=== PATIENT | female | born 2000 | race Caucasian/White ===

== ENCOUNTER 2023-08-06 11:40 | Outpatient (CLI) | payer OTHER, SELFPAY ==
--- NOTE | ~2023-08-06 | XR_ITS ---
EXAMINATION: XR mandible min 4V DATE: 08/06/2023 12:15 INDICATION: Pain in left mandible and maxilla. TECHNIQUE: 5 views of the mandible were obtained. COMPARISON: None. FINDINGS: Bone alignment is normal. No fracture. The temporomandibular joints are normal. IMPRESSION: 1. Normal mandible. Reviewed, dictated and finalized at location E. A DIRECTOR IMPRESSION: 1. Normal mandible.
== END 2023-08-06 11:41 ==
LOC: MICIMG 11:42
PROVIDERS: PCP Nurse Practitioner Adult Health; Visit Provider Nurse Practitioner Adult Health
DX: R68.84 Jaw pain (principal)
CPT/HCPCS: 70110

== ENCOUNTER 2024-01-29 10:28 | Emergency (ER) | payer OTHER, MEDICAID, SELFPAY ==
--- NOTE | ~2024-01-29 | CT_ITS ---
Non-contrast Head CT History: CVA Technique: Axial non-contrast imaging of the brain was performed. Dose reduction technique was used on this scan by utilizing automated exposure control and iterative reconstruction technique. The dose -length product (DLP) was 529.67 mGy-cm. Findings: There is no evidence of intracranial hemorrhage, mass lesion, or acute infarct. Brain par enchyma appears normal. The ventricles and subarachnoid spaces are normal in size. The calvarium ap pears normal. The visualized paranasal sinuses and mastoid air cells are clear. Impression: No significant abnormality seen. Case discussed with Dr. Castro at 10:45 AM on 01/29/2024. Reviewed, dictated and finalized at [facility]. Impression: No significant abnormality seen. Case discussed with Dr. Castro at 10:45 AM on 01/29/2024.
--- NOTE | ~2024-01-29 | CT_ITS ---
CT ANGIOGRAM NECK AND HEAD History: CVA. Technique: Serial spiral axial images through the head and neck were obtained during arterial phase I V injection of 100 cc of Omnipaque 350. 3-D postprocessing and MIP images were then reconstructed on the remote workstation. Dose reduction technique was used on this scan by utilizing automated exposur e control and iterative reconstruction technique. The dose-length product (DLP) was 802.54 mGy-cm. CTA neck findings: Bilateral vertebral arteries are probably patent, though somewhat poorly opacifie d. Bilateral common carotid, internal carotid, and external carotid arteries are patent. No large ves [place] occlusion or stenosis seen. No aneurysm seen. The proximal right internal carotid artery demonstr ates 0% stenosis relative to the normal distal artery lumen diameter. The proximal left internal carpenter tid artery demonstrates 0% stenosis relative to the normal distal artery lumen diameter. CTA head findings: Distal vertebral arteries, basilar artery, and posterior cerebral arteries are pat ent. Distal internal carotid arteries, middle cerebral arteries, and anterior cerebral arteries are p atent. No large vessel occlusion or stenosis. No aneurysm seen. Impression: No significant vascular abnormality seen. Reviewed, dictated and finalized at location . Impression: No significant vascular abnormality seen.
--- NOTE | 2024-01-29 10:36 | ECG_ITS ---
Test Date: 2024-01-29 10:56:55 Measurements Intervals [place] Rate: 106 P: 42 CT: 104 QRS: 34 QRSD: 78 T: -2 QT: 331 QTc: 440 Interpretive Statements SINUS TACHYCARDIA WITH SHORT CT INTERVAL OTHERWISE NORMAL ELECTROCARDIOGRAM No previous ECG available for comparison Electronically Signed On 01-29-2024 13:27:30 CDT by Eron Elizalde M.D.
--- NOTE | 2024-01-29 10:37 | ED.GENADULT ---
HPI - General Adult General Chief complaint: Neuro Symptoms/Deficit Stated complaint: 26 weeks -vision changes Time Seen by Provider: 01/29/24 10:34 History of Present Illness HPI narrative: 23-year-old female presented to the emergency department for evaluation for some right arm numbness. Patient states that she was having breakfast when the symptoms started approximately 9:00 a.m.. Patient states symptoms began to improve around 10:00 a.m.. Patient present to the emergency department at approximately 10:30 a.m.. At time of evaluation patient states she is being getting to feel improved. Patient was evaluated at the stroke stop and had a normal neuro exam. Related Data Home Medications Medication Instructions Recorded Confirmed docosahexaenoic acid 200 mg mg PO 09/17/23 01/06/24 capsule ( DHA) Allergies Allergy/AdvReac Type Severity Reaction Status Date / Time latex Allergy Intermediate RASH Verified 01/29/24 10:28 Review of Systems Review of Systems: All systems reviewed & are unremarkable except as noted in HPI and below PMFSH Past Medical History Medical History Mandible pain Purulent drainage of both ears through ear tube Surgical History Surgical History History of foot surgery wart removed Family History Family History Father Hypertension Grandparent Hypertension Family history of lung cancer Family history of coronary artery disease Family history of malignant neoplasm of kidney Diabetes mellitus ALS (amyotrophic lateral sclerosis) maternal grandmother Mother No problems noted. Sibling No problems noted. Sibling Substance abuse Social History Social History Smoking status: Never smoker Second hand tobacco smoke exposure: No Alcohol intake: never Substance use: never Substance use type: does not use Do You Feel Safe in your Home?: Yes Lack of Transportation: No Lack of Food: Never True Current Housing: I Have Housing Concerned About Future Housing: No Difficulty Paying Gas/Electric Bills: No Difficulty Paying for Meds: No Currently Unemployed: No Education: High School Diploma/GED Difficulty w/ Childcare or Family Care: No Living arrangements: with family Additional living arrangements comments: boyfriend Occupation/Education: occupation 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 HEAD: normocephalic, atraumatic. EYES: PERRLA/EOMI, conjunctivae clear. NOSE: Normal no drainage EARS:TMS clear with good light reflex. THROAT: Pharynx clear, no exudate. NECK: Supple. No adenopathy, no masses. RESPIRATORY: Airway patent, respirations nonlabored. Clear to auscultation bilaterally, no rales, rhonchi, wheezing. CARDIOVASCULAR: Regular rate and rhythm without murmurs rubs or gallops. ABDOMINAL: Soft, nontender, nondistended, normal bowel sounds MUSCULOSKELETAL: Moves all extremities. Strength/ROM intact, No edema, No calf tenderness. NEURO: Alert. Cranial nerves II through XII intact. SKIN: Warm, dry. Normal Color Course Vital Signs Vital signs: Vital Signs Temperature 98.7 F 01/29/24 10:40 Pulse Rate 104 H 01/29/24 10:40 Respiratory Rate 18 01/29/24 10:40 Blood Pressure 131/72 01/29/24 10:40 Pulse Oximetry 100 01/29/24 10:40 Oxygen Delivery Room Air 01/29/24 10:40 Temperature 98.3 F 01/29/24 12:54 Pulse Rate 106 H 01/29/24 12:54 Respiratory Rate 17 01/29/24 12:54 Blood Pressure 119/72 0
[2024-01-29 10:40] VITALS: BP 131/72; PULSE 104; RESP 18; TEMP 37.1; O2SAT 100
[2024-01-29 10:42] LABS: Estimated Glomerular Filt Rate > 60
[2024-01-29 10:43] LABS: Basophils Percent Auto 0.4 % (0.2-1.2); Eosinophils Absolute Auto 0.1 K/mm3 (0-0.3); Eosinophils Percent Auto 1.3 % (0-4.4); Hematocrit 32.3 % (37.0-47.0); Hemoglobin 10.3 g/dL (12.0-15.0); Immature Granulocyte Absolute 0.05 K/mm3 (0.00-0.031); Immature Granulocyte Percent A 0.5 % (0-0.5); Lymphocytes Absolute Auto 2.36 K/mm3 (0.9-3.2); Lymphocytes Percent Auto 24.8 % (18.3-44.2); Mean Corpuscular HGB Conc 31.9 g/dl (32-36); Mean Corpuscular Hemoglobin 28.1 pg (26-34); Mean Corpuscular Volume 88.3 fl (80-100); Mean Platelet Volume 11.7 fl (7.4-10.4); Monocytes Absolute Auto 0.5 K/mm3 (0.1-0.6); Monocytes Percent Auto 5.7 % (2.6-8.5); Neutrophils Absolute Auto 6.4 K/mm3 (1.3-6.7); Neutrophils Percent Auto 67.3 % (45.5-73.1); Platelet Count Result 244 k/mm3 (150-375); Red Blood Count 3.66 M/mm3 (4.2-5.4); White Blood Count 9.5 K/mm3 (4.5-10.0)
[2024-01-29 10:53] LABS: INR 0.9; Prothrombin Time 12.7 Seconds (11.1-14.7)
[2024-01-29 10:54] VITALS: BP 131/72; PULSE 104; RESP 23; O2SAT 100
[2024-01-29 10:54] LABS: Partial Thromboplastin Time 25.9 Seconds (22.3-36.8)
[2024-01-29 11:01] VITALS: BP 119/72; PULSE 92; RESP 15; O2SAT 99
[2024-01-29 11:10] LABS: Alanine Aminotransferase 13 U/L (6-35); Albumin Level 3.8 g/dL (3.5-5.1); Alkaline Phosphatase 96 U/L (38-126); Anion Gap 8 mmol/L (4-12); Aspartate Amino Transferase 21 U/L (14-36); Bilirubin,Total 0.2 mg/dL (0.2-1.3); Blood Urea Nitrogen 10 mg/dL (7-17); Calcium 9.8 mg/dL (8.4-10.2); Carbon Dioxide 26 mmol/L (22-30); Chloride 102 mmol/L (98-107); Estimated CRCL calculation 134 ml/min; Estimated Glomerular Filt Rate > 60; Glucose 107 mg/dL (65-110); Potassium 3.9 mmol/L (3.4-5.0); Sodium 136 mmol/L (137-145)
[2024-01-29 11:42] VITALS: BP 119/72; PULSE 95; RESP 14; TEMP 36.8; O2SAT 99
[2024-01-29 11:49] LABS: Influenza A QL RT-PCR Negative (Negative); Influenza B QL RT-PCR Negative (Negative); RSV RNA, RT-PCR Negative (Negative); SARS-CoV-2 RNA PCR Negative (Negative)
[2024-01-29 12:30] VITALS: BP 119/78; PULSE 107; RESP 15; TEMP 36.6; O2SAT 99
[2024-01-29 12:54] VITALS: BP 119/72; PULSE 106; RESP 17; TEMP 36.8; O2SAT 100
== END 2024-01-29 12:55 | disposition home or self-care (01) ==
PROVIDERS: Emergency Provider Emergency Medicine; PCP Family Medicine
DX: O99.891 Other specified diseases and conditions complicating pregnancy (principal); R20.2 Paresthesia of skin; R00.0 Tachycardia, unspecified; Z3A.26 26 weeks gestation of pregnancy
CPT/HCPCS: 36415; 70450; 70496; 70498; 80053; 85025; 85610; 85730; 87637; 93005; 99284; Q9967

== ENCOUNTER 2024-04-17 18:34 | Observation (INO) | payer OTHER, MEDICAID, SELFPAY ==
[2024-04-17] VITALS (9 sets, daily range): BP systolic 129–148; BP diastolic 63–86; PULSE 98–118; TEMP 37.2–37.6; BMI 31.8
--- NOTE | ~2024-04-17 | US_ITS ---
EXAMINATION: US OB limited w BPP DATE: 04/17/2024 21:58 INDICATION: decelerations in heart rate . TECHNIQUE: Real-time ultrasound of the pelvis was performed. COMPARISON: None. FINDINGS: There is a single living fetus in vertex presentation, longitudinal lie. The placenta is fundal/mate rnal right. heart rate is 148 bpm. Deepest vertical amniotic fluid pocket measures 2.7 cm. Biophysical profile performed by the technologist: breathing (30 sec sustained breathing in 30 minutes): 2 out of 2. movement (3 gross body movements in 30 minutes: 2 out of 2. tone (one episode of rotzhzz-ltawrrjwq-vdhyvhd limb movement): 2 out of 2. Amniotic fluid pocket (2 cm): 2 out of 2. Total score: 8 out of 8. IMPRESSION: Single living fetus in vertex presentation. Biophysical profile 8 out of 8. Reviewed, dictated and finalized at location K. E BELT SANDER
[2024-04-17 19:36] LABS: Add Urine Microscopic? NO; Appearance Urine Clear (Clear); Bilirubin Urine Negative (Negative); Blood Urine Negative (Negative); Color Urine Yellow (Yellow); Glucose Urine UA Negative (Negative); Ketones Urine Negative (Negative); Leukocyte Esterase Ur Negative LEU/UL (Negative); Nitrate Urine Negative (Negative); Protein Urine Negative (Negative); Specific Grav Ur 1.007 (1.001-1.035); Urobilinogen Urine 0.2 mg/dL (<2.0); pH Urine 6.5 (5.0-9.0)
[2024-04-17 21:16] LABS: Basophils Percent Auto 0.2 % (0.2-1.2); Eosinophils Percent Auto 0.2 % (0-4.4); Hematocrit 28.3 % (37.0-47.0); Hemoglobin 9.3 g/dL (12.0-15.0); Immature Granulocyte Absolute 0.08 K/mm3 (0.00-0.031); Immature Granulocyte Percent A 0.6 % (0-0.5); Lymphocytes Absolute Auto 1.19 K/mm3 (0.9-3.2); Lymphocytes Percent Auto 9.1 % (18.3-44.2); Mean Corpuscular HGB Conc 32.9 g/dl (32-36); Mean Corpuscular Hemoglobin 27.3 pg (26-34); Mean Platelet Volume 12.6 fl (7.4-10.4); Monocytes Absolute Auto 0.5 K/mm3 (0.1-0.6); Monocytes Percent Auto 3.4 % (2.6-8.5); Neutrophils Absolute Auto 11.3 K/mm3 (1.3-6.7); Neutrophils Percent Auto 86.5 % (45.5-73.1); Platelet Count Result 202 k/mm3 (150-375); Red Blood Count 3.41 M/mm3 (4.2-5.4); Red Cell Distribution Width 15.9 % (11.5-14.5); White Blood Count 13.1 K/mm3 (4.5-10.0)
--- NOTE | 2024-04-19 14:13 | P.PNOB_ITS ---
OB - Triage/Final Diagnosis Visit Information Date of evaluation: 04/17/24 Reason for evaluation: threatened labor Comments/Additional reasons for admission: I have assessed the risk for this patient, Jules Abdullahi, and determined that she would benefit from observation care. Evaluation Laboratory results: Laboratory Tests 04/17/24 04/17/24 19:27 21:06 WBC 13.1 H RBC 3.41 L Hgb 9.3 L Hct 28.3 L MCV 83.0 MCH 27.3 MCHC 32.9 RDW 15.9 H Plt Count 202 MPV 12.6 H Immature Gran % (Auto) 0.6 H Neut % (Auto) 86.5 H Lymph % (Auto) 9.1 L [place] % (Auto) 3.4 Eos % (Auto) 0.2 Baso % (Auto) 0.2 Lymph # (Auto) 1.19 [place] # (Auto) 0.5 Eos # (Auto) 0.0 Baso # (Auto) 0.0 Abs Immat Gran (auto) 0.08 H Absolute Neuts (auto) 11.3 H Absolute Nucleated RBC 0.000 Nucleated RBC % 0.0 Urine Color Yellow Urine Appearance Clear Urine pH 6.5 Ur Specific [place] 1.007 Urine Protein Negative Urine Glucose (UA) Negative Urine Ketones Negative Ur Blood (Man) Negative Urine Nitrate Negative Urine Bilirubin Negative Urine Urobilinogen 0.2 Leukocyte Esterase Rfl Negative
== END 2024-04-17 22:15 | disposition home or self-care (01) ==
PROVIDERS: Admitting Provider Student in an Organized Health Care Education/Training Program; PCP Family Medicine; Visit Provider Student in an Organized Health Care Education/Training Program
DX: O47.1 False labor at or after 37 completed weeks of gestation (principal); Z3A.37 37 weeks gestation of pregnancy
CPT/HCPCS: 36415; 76815; 76819; 81003; 85025; G0378; G0379

== ENCOUNTER 2024-04-20 17:53 | Outpatient (CLI) | payer OTHER, MEDICAID, SELFPAY ==
[2024-04-20] VITALS (11 sets, daily range): BP systolic 126–131; BP diastolic 77–79; PULSE 93–99; O2SAT 96–98; BMI 28.1
[2024-04-20 18:40] LABS: Basophils Percent Auto 0.2 % (0.2-1.2); Eosinophils Absolute Auto 0.1 K/mm3 (0-0.3); Eosinophils Percent Auto 0.6 % (0-4.4); Hematocrit 29.6 % (37.0-47.0); Hemoglobin 9.4 g/dL (12.0-15.0); Immature Granulocyte Absolute 0.05 K/mm3 (0.00-0.031); Immature Granulocyte Percent A 0.6 % (0-0.5); Lymphocytes Absolute Auto 1.39 K/mm3 (0.9-3.2); Lymphocytes Percent Auto 17.4 % (18.3-44.2); Mean Corpuscular HGB Conc 31.8 g/dl (32-36); Mean Corpuscular Hemoglobin 26.6 pg (26-34); Mean Corpuscular Volume 83.9 fl (80-100); Mean Platelet Volume 12.7 fl (7.4-10.4); Monocytes Absolute Auto 0.5 K/mm3 (0.1-0.6); Monocytes Percent Auto 5.6 % (2.6-8.5); Neutrophils Absolute Auto 6.1 K/mm3 (1.3-6.7); Neutrophils Percent Auto 75.6 % (45.5-73.1); Platelet Count Result 197 k/mm3 (150-375); Red Blood Count 3.53 M/mm3 (4.2-5.4); Red Cell Distribution Width 15.9 % (11.5-14.5)
[2024-04-20 18:49] LABS: Alanine Aminotransferase 12 U/L (6-35); Albumin Level 3.3 g/dL (3.5-5.1); Alkaline Phosphatase 167 U/L (38-126); Anion Gap 4 mmol/L (4-12); Aspartate Amino Transferase 20 U/L (14-36); Bilirubin,Total 0.2 mg/dL (0.2-1.3); Blood Urea Nitrogen 8 mg/dL (7-17); Carbon Dioxide 25 mmol/L (22-30); Chloride 105 mmol/L (98-107); Estimated Glomerular Filt Rate > 60; Glucose 72 mg/dL (65-110); Potassium 4.1 mmol/L (3.4-5.0); Sodium 134 mmol/L (137-145)
[2024-04-20 18:52] LABS: Add Urine Microscopic? YES; Appearance Urine Cloudy (Clear); Bacteria Urine Rare /hpf; Bilirubin Urine Negative (Negative); Blood Urine Negative (Negative); Color Urine Yellow (Yellow); Glucose Urine UA Negative (Negative); Ketones Urine Negative (Negative); Leukocyte Esterase Ur Negative LEU/UL (Negative); Need Manual Microscopic Reviewed; Nitrate Urine Negative (Negative); Non Pathogenic Casts 0-2; Protein Urine Negative (Negative); RBC Urine 0-2 /hpf (0-2); Specific Grav Ur 1.004 (1.001-1.035); Squamous Epithelial Cell Urine Occasional /hpf (Few); Urobilinogen Urine 0.2 mg/dL (<2.0); WBC Urine 0-5 /hpf (0-3); pH Urine 6.5 (5.0-9.0)
--- NOTE | 2024-04-20 18:52 | OBADM ---
This patient, Jules Abdullahi, admitted to the OB room Labor/Delivery/Recovery 118 for observation. Patient/family oriented to hospital policies and general routines including ID bracelet, bed and alarms, visiting hours, pain management, procedures, bathroom and other care routines, personal items, smoking policy, room service/diet, and visiting hours. Patient/Family are encouraged to report perceived risks to care and to ask questions if they do not understand what they are told or what they should do.
[2024-04-20 19:02] LABS: Hypochromasia 1+; Platelet Estimate Adequate (Adequate)
[2024-04-20 19:03] LABS: Anisocytosis 1+; Schistocytes None Seen
--- NOTE | 2024-04-20 19:11 | PC.NURSE ---
Called Dr. Montoya, update on pt, labs, and blood pressure. Orders received to discharge pt with instructions to keep next scheduled appointment and when to return to the unit.
--- NOTE | 2024-04-20 19:14 | PC.NURSE ---
Pt discharged with instructions to keep next scheduled appointment and when to return to the unit, pt verbalizes understanding.
[2024-04-21 00:45] LABS: Creatinine Urine 21.4 mg/dL; Total Protein Urine Random 18 mg/dL; Ur Ttl Prot Creatinine Ratio 0.84 mg/mg (0-0.20)
== END 2024-04-20 19:14 | disposition home or self-care (01) ==
LOC: ANHOBOP 18:00 → ANHLDR 18:02
PROVIDERS: PCP Family Medicine; Visit Provider Obstetrics & Gynecology
DX: O13.9 Gestational [pregnancy-induced] hypertension without significant proteinuria, unspecified trimester (principal); Z3A.00 Weeks of gestation of pregnancy not specified
CPT/HCPCS: 36415; 59025; 80053; 81001; 82570; 84156; 84550; 85025; 99199

== ENCOUNTER 2024-05-03 10:18 | Outpatient (RCR) | payer OTHER, MEDICAID, SELFPAY ==
--- NOTE | 2024-04-23 17:44 | PC.NURSE ---
Patient off of monitor from [id number]. In bathroom providing urine sample at this time.
[2024-04-23 17:47] LABS: Basophils Percent Auto 0.1 % (0.2-1.2); Eosinophils Absolute Auto 0.1 K/mm3 (0-0.3); Eosinophils Percent Auto 1.4 % (0-4.4); Hematocrit 30.4 % (37.0-47.0); Hemoglobin 9.7 g/dL (12.0-15.0); Immature Granulocyte Absolute 0.05 K/mm3 (0.00-0.031); Immature Granulocyte Percent A 0.6 % (0-0.5); Lymphocytes Absolute Auto 2.21 K/mm3 (0.9-3.2); Lymphocytes Percent Auto 28.3 % (18.3-44.2); Mean Corpuscular HGB Conc 31.9 g/dl (32-36); Mean Corpuscular Hemoglobin 27.1 pg (26-34); Mean Corpuscular Volume 84.9 fl (80-100); Monocytes Absolute Auto 0.4 K/mm3 (0.1-0.6); Monocytes Percent Auto 5.6 % (2.6-8.5); Platelet Count Result 182 k/mm3 (150-375); Red Blood Count 3.58 M/mm3 (4.2-5.4); Red Cell Distribution Width 15.7 % (11.5-14.5); White Blood Count 7.8 K/mm3 (4.5-10.0)
[2024-04-23 17:48] VITALS: PULSE 91
[2024-04-23 17:54] LABS: Add Urine Microscopic? YES; Appearance Urine Clear (Clear); Bacteria Urine 1+ /hpf; Bilirubin Urine Negative (Negative); Blood Urine Negative (Negative); Color Urine Yellow (Yellow); Glucose Urine UA Negative (Negative); Ketones Urine Negative (Negative); Leukocyte Esterase Ur Trace LEU/UL (Negative); Nitrate Urine Negative (Negative); Non Pathogenic Casts 0-2; Protein Urine Negative (Negative); RBC Urine 0-2 /hpf (0-2); Specific Grav Ur 1.015 (1.001-1.035); Squamous Epithelial Cell Urine Occasional /hpf (Few); Urobilinogen Urine 0.2 mg/dL (<2.0); WBC Urine 0-5 /hpf (0-3); pH Urine 6.5 (5.0-9.0)
[2024-04-23 17:57] LABS: Alanine Aminotransferase 13 U/L (6-35); Albumin Level 3.2 g/dL (3.5-5.1); Alkaline Phosphatase 186 U/L (38-126); Anion Gap 6 mmol/L (4-12); Aspartate Amino Transferase 22 U/L (14-36); Bilirubin,Total 0.3 mg/dL (0.2-1.3); Blood Urea Nitrogen 9 mg/dL (7-17); Calcium 8.9 mg/dL (8.4-10.2); Carbon Dioxide 23 mmol/L (22-30); Chloride 106 mmol/L (98-107); Estimated Glomerular Filt Rate > 60; Glucose 85 mg/dL (65-110); Potassium 3.9 mmol/L (3.4-5.0); Sodium 135 mmol/L (137-145); Uric Acid 6.1 mg/dL (2.5-7.5)
[2024-04-23 17:58] LABS: Creatinine Urine 80.1 mg/dL; Total Protein Urine Random 10 mg/dL; Ur Ttl Prot Creatinine Ratio 0.12 mg/mg (0-0.20)
--- NOTE | ~2024-05-03 | US_ITS ---
EXAMINATION: US OB BPP wo non-stress DATE: 05/03/2024 11:49 INDICATION: Postdates TECHNIQUE: Real-time pelvic ultrasound was performed. The interpreting radiologist was not present fo r the study. COMPARISON: None. FINDINGS: There is a single living fetus in vertex presentation. The placenta is on maternal right. hear t rate is 141 beats per minute (bpm). Amniotic fluid volume is subjectively normal with normal deepes t vertical pocket measurement of 4.5 cm. Biophysical profile performed by the technologist: breathing (30 sec sustained breathing in 30 minutes): 2 out of 2 movement (3 gross body movements in 30 minutes): 2 out of 2 tone (one episode of jncfhtz-jluhrkiqp-psspkxr limb movement): 2 out of 2 Amniotic fluid pocket (2 cm): 2 out of 2 Total score: 8 out of 8 IMPRESSION: 1. Single living fetus in vertex presentation with heart rate of 141 bpm. 2. Biophysical profile 8 out of 8. Reviewed, dictated and finalized at location A. ITUTIONAL NUTRITION CONSULTANT
--- NOTE | ~2024-05-03 | US_ITS ---
EXAMINATION: US OB BPP wo non-stress DATE: 04/23/2024 18:50 INDICATION: Gestational hypertension. Third trimester. TECHNIQUE: Real-time pelvic ultrasound was performed. COMPARISON: Ultrasound 04/17/2024 FINDINGS: There is a single living fetus in vertex presentation. The placenta is fundal and on the right. Feta l heart rate is 133 beats per minute (bpm). The deepest vertical pocket is 2.7 cm. Biophysical profile performed by the technologist: breathing (30 sec sustained breathing in 30 minutes): 2 out of 2 movement (3 gross body movements in 30 minutes): 2 out of 2 tone (one episode of efspckj-nvmktspln-pwkpwxj limb movement): 2 out of 2 Amniotic fluid pocket (2 cm): 2 out of 2 Total score: 8 out of 8 IMPRESSION: 1. Single living fetus in vertex presentation. 2. Biophysical profile 8 out of 8. Reviewed, dictated and finalized at location A. NT SPRAYER HELPER
[2024-05-03 11:45] VITALS: PULSE 93
== END 2024-06-12 16:16 | disposition home or self-care (01) ==
LOC: ANHOBOP 10:18
PROVIDERS: PCP Family Medicine; Visit Provider Obstetrics & Gynecology
DX: O13.3 Gestational [pregnancy-induced] hypertension without significant proteinuria, third trimester (principal); Z3A.38 38 weeks gestation of pregnancy
CPT/HCPCS: 36415; 59025; 76819; 80053; 81001; 82570; 84156; 84550; 85025

== ENCOUNTER 2024-05-05 16:48 | Inpatient (IN) | payer OTHER, MEDICAID, SELFPAY ==
[2024-05-05] VITALS (10 sets, daily range): BP systolic 111–134; BP diastolic 59–73; PULSE 89–97; TEMP 36.3–36.5; BMI 32.7
--- NOTE | 2024-05-05 17:17 | LDADM ---
This patient, Jules Abdullahi, was admitted to Labor/Delivery/Recovery 104 on 05/05/24 at 16:48. Plans for labor, pain management and were discussed with patient. Patient/family oriented to hospital policies and general routines including ID bracelet, bed and alarms, visiting hours, pain management, procedures, bathroom and other care routines, personal items, smoking policy, room service/diet and guest tray routines, security routines, and visiting hours. Patient/Family are encouraged to report perceived risks to care and to ask questions if they do not understand what they are told or what they should do. See OBIX for further documentation.
[2024-05-05 17:32] LABS: Basophils Percent Auto 0.3 % (0.2-1.2); Eosinophils Absolute Auto 0.2 K/mm3 (0-0.3); Eosinophils Percent Auto 1.5 % (0-4.4); Hematocrit 31.7 % (37.0-47.0); Hemoglobin 10.1 g/dL (12.0-15.0); Immature Granulocyte Absolute 0.14 K/mm3 (0.00-0.031); Immature Granulocyte Percent A 1.2 % (0-0.5); Immature Platelet Fraction Pct 25.1 % (0.9-11.2); Lymphocytes Absolute Auto 2.86 K/mm3 (0.9-3.2); Lymphocytes Percent Auto 24.5 % (18.3-44.2); Mean Corpuscular HGB Conc 31.9 g/dl (32-36); Mean Corpuscular Hemoglobin 26.8 pg (26-34); Mean Corpuscular Volume 84.1 fl (80-100); Mean Platelet Volume 13.6 fl (7.4-10.4); Monocytes Absolute Auto 0.8 K/mm3 (0.1-0.6); Monocytes Percent Auto 6.7 % (2.6-8.5); Neutrophils Absolute Auto 7.7 K/mm3 (1.3-6.7); Neutrophils Percent Auto 65.8 % (45.5-73.1); Platelet Count Result 181 k/mm3 (150-375); Red Blood Count 3.77 M/mm3 (4.2-5.4); Red Cell Distribution Width 17.2 % (11.5-14.5); White Blood Count 11.7 K/mm3 (4.5-10.0)
[2024-05-05] MEDS: DINOPROSTONE 10 MG VAG INSERT VAGINAL (17:45)
--- NOTE | 2024-05-05 18:05 | WPDANESEPP ---
Anes - Eval Pre Procedure Procedure: Labor Epidural Date/Time: 05/05/24 18:05 Surgeon: Lindsay Preop Diagnosis: Labor pain Pre Op Diagnosis: IOL Patient Data Age: 24 Gender: F Height: 1.52 m Weight: 76 kg Last Vital Signs Temp 36.5 C 05/05/24 17:44 Pulse 96 05/05/24 18:00 BP 134/71 05/05/24 18:00 O2 Del Method Room Air 05/05/24 17:16 Allergies Allergy/AdvReac Type Severity Reaction Status Date / Time latex Allergy Intermediate RASH Verified 05/03/24 09:33 Home Medications Medication Instructions Recorded Confirmed Type docosahexaenoic acid 200 mg 200 mg PO DAILY 09/17/23 05/03/24 History capsule ( DHA) ondansetron 4 mg disintegrating 4 mg PO Q6H PRN nausea and 10/20/23 05/03/24 Rx tablet vomiting #30 tabs cetirizine 10 mg tablet (Zyrtec) 10 mg PO DAILY 04/05/24 05/03/24 History Laboratory Tests 05/05/24 17:07 WBC 11.7 H K/mm3 (4.5-10.0) RBC 3.77 L M/mm3 (4.2-5.4) Hgb 10.1 L g/dL (12.0-15.0) Hct 31.7 L % (37.0-47.0) MCV 84.1 fl (80-100) MCH 26.8 pg (26-34) MCHC 31.9 L g/dl (32-36) RDW 17.2 H % (11.5-14.5) Plt Count 181 k/mm3 (150-375) MPV 13.6 H fl (7.4-10.4) Immature Gran % (Auto) 1.2 H % (0-0.5) Neut % (Auto) 65.8 % (45.5-73.1) Lymph % (Auto) 24.5 % (18.3-44.2) [place] % (Auto) 6.7 % (2.6-8.5) Eos % (Auto) 1.5 % (0-4.4) Baso % (Auto) 0.3 % (0.2-1.2) Lymph # (Auto) 2.86 K/mm3 (0.9-3.2) [place] # (Auto) 0.8 H K/mm3 (0.1-0.6) Eos # (Auto) 0.2 K/mm3 (0-0.3) Baso # (Auto) 0.0 K/mm3 (0.0-0.1) Abs Immat Gran (auto) 0.14 H K/mm3 (0.00-0.031) Absolute Neuts (auto) 7.7 H K/mm3 (1.3-6.7) Absolute Nucleated RBC 0.000 K/mm3 (0.0-0.012) Nucleated RBC % 0.0 % (0.0-0.2) % Immature Plt Fraction 25.1 H % (0.9-11.2) RPR Pending HIV 1&2 Ab/P24 Ag 4thGn Pending : gestational age () Patient hx anesthesia problems: none Family hx anesthesia problems: none Results Review: All pre-operative results and documents have been reviewed as part of the pre-operative evaluation. [facility] Past Medical History Medical History Mandible pain Purulent drainage of both ears through ear tube Surgical History Surgical History History of foot surgery wart removed Family History Family History Father Cirrhosis of liver Hypertension Diabetes mellitus Grandparent ALS (amyotrophic lateral sclerosis) maternal grandmother Family history of malignant neoplasm of kidney Diabetes mellitus Family history of lung cancer Family history of coronary artery disease Hypertension Mother No problems noted. Sibling Substance abuse Social History Social History Smoking status: Never smoker Second hand tobacco smoke exposure: No Alcohol intake: never Substance use: never Substance use type: does not use Do You Feel Safe in your Home?: Yes Lack of Transportation: No Lack of Food: Never True Current Housing: I Have Housing Concerned About Future Housing: No Difficulty Paying Gas/Electric Bills: No Difficulty Paying for Meds: No Currently Unemployed: No Education: High School Diploma/GED Difficulty w/ Childcare or Family Care: No Living arrangements: with family Additional living arrangements comments: boyfriend Occupation/Education: occupation 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
[2024-05-05 18:14] LABS: Rapid Plasma Reagin Non-Reactive (NonReactive)
[2024-05-05 18:21] LABS: HIV 1/2 Ab P24 Ag Result Negative (Negative)
[2024-05-06] VITALS (181 sets, daily range): BP systolic 94–148; BP diastolic 36–97; PULSE 54–139; RESP 12–16; TEMP 36–37.4; O2SAT 94–100
[2024-05-06] MEDS: LACTATED RINGERS 1,000 ML 125 ML IV CONT ×2 (05:43→08:17)
[2024-05-06] MEDS: OXYTOCIN 30 UNITS/NS 500 ML 30 UNITS/500 ML BAG 6 UNITS IV CONT (06:11)
[2024-05-06] MEDS: fentaNYL CITRATE INJ (*CRX) 100 MCG/2 ML VIAL 50 MCG IV PUSH (07:28)
--- NOTE | 2024-05-06 13:44 | WPDHPUPDATE1 ---
History and Physical Update Update Date/Time: 05/06/24 13:44 History and Physical has been reviewed, including an updated exam of the patient. There are NO changes in the patient's condition. Risks, benefits, and alternatives have been discussed and questions answered. Patient agrees to proceed with procedure.
--- NOTE | 2024-05-06 13:44 | WPDOBADMIT ---
Obstetrics - Admit Note Admission Note: record reviewed. No pertinent additions to the history and/or any subsequent changes in the physical findings that are not consistent with the expected course of the were found. Additions to the history and/or subsequent changes in the physical findings follow. None.
--- NOTE | 2024-05-06 16:37 | PM.OBPRVD ---
OB - Vaginal Delivery Note Procedure Delivery date: 05/06/24 Induction method: Per Cervidil Protocol Delivery augmentation: Rupture of Membranes and Pitocin Delivery monitor: External FHT and Internal Uterine Route of delivery: Episiotomy description: None Laceration Description: Perineal - 1st Degree Delivery repair: chromic Specimen: No Quantitative Blood Loss (ml): 300 Anesthesia type: Epidural Disposition: Floor Complications: No immediate complications Narrative: Patient prepped and draped in usual manner for this procedure. Maternal expulsive efforts readily delivered vertex over intact perineum. Rest of baby was delivered without difficulty, cord clamped and cut, baby was placed on maternal abdomen. Placenta delivered spontaneously and uterus was well contracted. Minimal bleeding. Immediate postoperative condition mother and baby were both excellent. [place] Baby Gestational Age by Date: 41 gender: Female presentation: vertex position: Right Occiput Anterior Placenta delivery description: Spontaneous Cord Vessel Description: 3 Vessels
[2024-05-06] MEDS: OXYTOCIN 30 UNITS/NS 500 ML 30 UNITS/500 ML BAG 125 UNITS IV CONT (16:43)
[2024-05-06] MEDS: IBUPROFEN 600 MG TABLET PO (17:26)
[2024-05-06] MEDS: ACETAMINOPHEN 325 MG TABLET 650 MG PO (18:08)
[2024-05-07 00:01] VITALS: BP 113/71; PULSE 97; RESP 14; TEMP 36.8; O2SAT 97
[2024-05-07] MEDS: ACETAMINOPHEN 325 MG TABLET 650 MG PO (04:54)
[2024-05-07] MEDS: IBUPROFEN 600 MG TABLET PO (04:55)
[2024-05-07 05:19] LABS: Hematocrit 25.6 % (37.0-47.0); Hemoglobin 8.2 g/dL (12.0-15.0)
[2024-05-07 08:10] VITALS: BP 118/80; PULSE 94; RESP 16; TEMP 37.2; O2SAT 98
[2024-05-07] MEDS: MULTIVIT/MIN/PREN/FOL AC/IRON TABLET 1 TAB PO (08:13)
[2024-05-07] MEDS: DOCUSATE SODIUM 100 MG CAPSULE PO (08:13)
[2024-05-07] MEDS: POLYSACCHARIDE IRON COMPLEX 150 MG CAPSULE PO (08:13)
[2024-05-07] MEDS: LORATADINE 10 MG TABLET PO (08:14)
[2024-05-07 12:10] VITALS: BP 142/90; PULSE 110; RESP 18; TEMP 37.1; O2SAT 99
--- NOTE | 2024-05-07 13:51 | PM.OBDSVD ---
DS: Admitting Diagnosis Discharge Date 05/07/2024 Admitting Diagnosis DS: Discharge Diagnosis Discharge Diagnosis (1) , delivered: Code(s): O80 - Encounter for full-term uncomplicated delivery Status: Acute OB - DS: Summary OB Procedures : None OB Procedures Intrapartum: Spontaneous Vag Delivery OB Procedures: : None Peripartum Data Laceration Description: Perineal - 1st Degree Episiotomy description: None Time Spent with Patient Time attestation: Total time spent providing and/or coordinating discharge services: DS: Data Data Completed and Pending Labs on day of discharge: Labs from last 24 hours 05/07/24 04:52 Hgb 8.2 L Hct 25.6 L Discharge Plan Discharge Discharging Clinician: Niles Montoya Patient Disposition: Home, Self-Care Activity: as tolerated Diet: as tolerated Patient Instructions: Antibiotic Form Stand Alone Forms: General Discharge Information Follow-up/Referrals: Niles Montoya MD [Physician] - 3 Weeks Discharge Medications: New ibuprofen 600 mg Tablet 600 mg PO Q6H PRN (Reason: Cramping) Qty: 30 0RF Continued DHA 200 mg capsule 200 mg PO DAILY cetirizine [Zyrtec] 10 mg Tablet 10 mg PO DAILY ondansetron 4 mg tablet,disintegrating 4 mg PO Q6H PRN (Reason: nausea and vomiting) Qty: 30 2RF Date of admission: 05/05/24 16:48 Primary Care Provider: Jaswinder Smith Admitting Provider: Niles Montoya Attending physician on admission: Niles Montoya Condition: Stable
[2024-05-10 10:13] VITALS: BP 140/86; PULSE 76; RESP 18; TEMP 36.9; O2SAT 100
== END 2024-05-07 19:15 | disposition home or self-care (01) | DRG 807 ==
LOC: ANHLDR 05-06 16:17 → ANHOB2 05-06 19:55
PROVIDERS: Admitting Provider Obstetrics & Gynecology; PCP Family Medicine; Visit Provider Obstetrics & Gynecology
DX: O70.0 First degree perineal laceration during delivery (principal); Z37.0 Single live birth; Z3A.40 40 weeks gestation of pregnancy
CPT/HCPCS: 36415; 85014; 85018; 85025; 85055; 86592; 86703; 86850; 86900; 86901; A9270; G0432; J2590; J2795; J3010; J7120

== ENCOUNTER 2024-12-12 09:33 | Emergency (ER) | payer OTHER, MEDICAID, SELFPAY ==
[2024-12-12 09:35] VITALS: BP 113/70; PULSE 112; RESP 20; TEMP 38.3; O2SAT 96
--- NOTE | 2024-12-12 10:00 | ED.URI ---
HPI - URI/Sore Throat General Chief Complaint: Upper Respiratory Infection Stated Complaint: Sore Throat Time Seen by Provider: 12/12/24 09:56 Source: patient Mode of arrival: ambulatory Limitations: no limitations History of Present Illness HPI Narrative: Patient is a 24-year-old female with a sore throat for the past 2 days. She is having a fever at this time. MD elicited complaint: fever and sore throat Pertinent past history: other ( negative) Onset (ago): day(s) ( 2) Consistency: constant Severity: moderate Pain scale (0-10): 5 Description of mucous: clear Able to tolerate fluids by mouth: Yes Exacerbating factors: swallowing Relieving factors: nothing Context: other ( patient is having sore throat with fever for the past 2 days) Associated symptoms: fever Treatments prior to arrival: none Related Data Allergies Allergy/AdvReac Type Severity Reaction Status Date / Time latex Allergy Intermediate RASH Verified 12/12/24 10:04 Review of Systems Review of Systems: All systems reviewed & are unremarkable except as noted in HPI and below Constitutional: Constitutional: Reports no additional constitutional complaints Eyes: Eyes: Reports no additional eye complaints ENT: Reports system reviewed and no additional complaints, except as documented Cardiovascular: Cardiovascular: Reports no additional cardiovascular complaints Respiratory: Respiratory: Reports no additional respiratory complaints Gastrointestinal: Gastrointestinal: Reports no additional gastrointestinal complaints Genitourinary: Genitourinary: Reports no additional female genitourinary complaints Musculoskeletal: Musculoskeletal: Reports no additional musculoskeletal complaints Integumentary/Breasts: Skin/Breast: Reports system reviewed and no additional complaints, except as docu Neurologic: Reports system reviewed and no additional complaints, except as documented Psychiatric: Psychiatric: Reports no additional psychiatric complaints Endocrine: Endocrine: Reports no additional endocrine complaints Hematologic/Lymphatic: Hematologic/Lymphatic: Reports no additional hematologic/lymphatic complaints Allergic/Immunologic: Allergic/Immunologic: Reports no additional allergic/immunologic complaints [facility] Past Medical History Medical History Otitis media Left ear pain Sinusitis, acute Tingling in extremities , delivered Viral sinusitis Tinea versicolor Plantar wart of left foot Deformity of clavicle Purulent drainage of both ears through ear tube Mandible pain Surgical History Surgical History History of foot surgery wart removed Family History Family History Father Cirrhosis of liver Hypertension Diabetes mellitus Grandparent ALS (amyotrophic lateral sclerosis) maternal grandmother Family history of malignant neoplasm of kidney Diabetes mellitus Family history of lung cancer Family history of coronary artery disease Hypertension Mother No problems noted. Sibling Substance abuse Social History Social History Smoking status: Never smoker Second hand tobacco smoke exposure: No Alcohol intake: never Substance use: never Substance use type: does not use Do You Feel Safe in your Home?: Yes Lack of Transportation: No Lack of Food: Never True Current Housing: Decline to Answer Concerned About Future Housing: Decline to Answer Difficulty Paying Gas/Electric Bills: Decline to Answer Difficulty Paying for Meds: Decline to Answer Currently Unemployed: Decline to Answer Education: Decline to Answer Difficulty w/ Childcare or Family Care: Decline to Answer Living arrangements: with family Additional living arrangements comments: boyfriend Occupation/Education: occupation 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 Gender identity (if verbalized by the patient): Female Sexual Orientation (if Verbalized by the Patient): Straight or Heterosexual Spiritual care concerns: No Exam Const: General: healthy appearing Nutritional Appearance: well nourished Orientation/consciousness: patient oriented x3 Limitations: no limitations HENMT: Head: normal to inspection Ears: external ears normal Face/Nose/Sinus: Normal external nose present Throat: posterior oropharynx abnormal Other: bright red bilateral oropharynx with 1 to 2+ hypertrophy tonsillar Eyes: Conjunctivae: conjunctivae normal Pupils: Equal, round and reactive pupils present EOM: EOMs intact bilaterally Neck: Neck: normal visual inspection Chest: Chest palpation & inspection: normal inspection of the chest Resp: Effort & Inspection: normal respiratory effort and not labored Auscultation: clear to auscultation bilaterally and no crackles Skin: General skin exam: normal color Rashes: no rashes Wounds: no wounds Neuro: General: patient oriented x3, moves all extremities, no meningeal signs, no focal motor deficits and CN's II-XI intact bilaterally Extrem: General: normal to inspection Psych: Mental Status: mental status grossly normal Affect: normal affect Attitude: cooperative Course Vital Signs Vital signs: Vital Signs Temperature 38.3 C H 07/13/25 09:35 Pulse Rate 112 H 12/12/24 09:35 Respiratory Rate 20 12/12/24 09:35 Blood Pressure 113/70 12/12/24 09:35 Pulse Oximetry 96 12/12/24 09:35 Oxygen Delivery Room Air 12/12/24 09:35 Temperature 37.2 C 12/12/24 11:15 Pulse Rate 88 12/12/24 11:15 Respiratory Rate 15 12/12/24 11:15 Blood Pressure 109/62 12/12/24 11:15 Pulse Oximetry 98 12/12/24 11:15 Oxygen Delivery Room Air 12/12/24 11:15 MDM - URI/Sore Throat MDM Narrative Medical decision making narrative: patient is a 24-year-old female with a sore throat and fever for the past couple of days. Strep test to be done. Strep test was negative however examination was significant and we will go with Augmentin at this time. Lab Data Attestation: I reviewed the patient's lab results. Labs: Lab Results 12/12/24 Range/Units 09:59 Group A Strep (PCR) Not detected (Negative) Discharge Plan Discharge Clinical Impression: Pharyngitis Qualifiers: Pharyngitis/tonsillitis etiology: unspecified etiology Qualified Code(s): J02.9 - Acute pharyngitis, unspecified Patient Disposition: Home Condition: Stable Instructions: Antibiotic Form, Pharyngitis (ED) Patient Language: Luxembourger Prescriptions: New amoxicillin-pot clavulanate 875-125 mg tablet 1 tablet PO BID 10 Days Qty: 20 0RF No Action drospirenone-ethinyl estradiol [BANDAR (28)] 3-0.02 mg tablet 1 tablet PO DAILY Qty: 84 3RF Follow-up/Referrals: Jaswinder Smith MD [Primary Care Provider] - Stand Alone Forms: Work/School Release IP Time of Disposition: 11:17
[2024-12-12 10:35] LABS: Strep Group A RT-PCR NOT DETECTED (Negative)
[2024-12-12 11:20] VITALS: BP 109/62; PULSE 88; RESP 15; TEMP 37.2; O2SAT 98
== END 2024-12-12 11:20 | disposition home or self-care (01) ==
PROVIDERS: Emergency Provider Emergency Medicine; PCP Family Medicine
DX: J02.9 Acute pharyngitis, unspecified (principal)
CPT/HCPCS: 87651; 99283